=== PATIENT | female | born 1950 | race Caucasian/White ===

== ENCOUNTER 2018-12-30 15:29 | Inpatient (IN) | payer MEDICARE, BC ==
[~2018-12-30] VITALS: Ht 152.4 cm; Wt 37.1 kg
[2018-12-30 20:00] VITALS: BP 143/73
[2018-12-30] MEDS ORDERED: ASPIRIN81 MG PO (22:34)
[2018-12-30] MEDS ORDERED: MEGACE40 MG PO (22:37)
[2018-12-30] MEDS ORDERED: MELATONIN5 M3 PO (22:38)
[2018-12-30] MEDS ORDERED: ZYPREXA2.5 MG PO (22:39)
[2018-12-30] MEDS ORDERED: DEPAKENE250 MG PO (22:40)
[2018-12-30] MEDS ORDERED: THERAGRAN M [BK1 TAB PO (22:40)
--- NOTE | 2018-12-30 22:46 | NUR ---
PT ARRIVED TO UNIT VIA AMBULANCE FROM [facility] IN [place]. DAUGHTER WHO IS POA IS HERE TO SIGN CONSENTS. PT IS HERE FOR REFUSING FOOD, HALLUCINATIONS AND INCREASED CONFUSION. SHE IS ALERT AND ORIENTED TO SELF ONLY. HER SPEECH IS GARBLED AND TANGETIAL. SHE IS A TWO PERSON ASSIST. SHE CANNOT AMULATE BY HERSELF. SHE HAS SPENT THE LAST FEW DAYS IN A BRIANDA CHAIR AT [facility]. DAUGHTER HAS HER GLASSES AT HOME. PT WAS A TWO PACK A DAY SMOKER UNTIL A MONTH AGO. PT HAS TIMES OF INCONTINENCE.
[2018-12-30 23:03] VITALS: BP 142/73; BMI 16.2
[2018-12-30 23:12] LABS: BASOPHILS 0.4 % (0-2); EOSINOPHILS 3.5 % (0-7); HEMATOCRIT 36.3 % (36.0-48.0); HEMOGLOBIN 12.6 g/dL (12-16); IMMATURE GRANULOCYTES 0.4 % (0-5); LYMPHOCYTES 22.6 % (15-50); MCHC 34.7 g/dL (31.0-37.0); MCV 86.4 fL (80.0-100.0); MEAN PLATELET VOLUME 9.8 fL (7.4-10.4); MONOCYTES 11.5 % (2-11); NEUTROPHILS 61.6 % (40-80); PLATELET COUNT 261 10x3/uL (130-400); RDW 13.9 % (11.5-14.5); WBC 8.2 10x3/uL (4.8-10.8)
[2018-12-30 23:52] LABS: ALBUMIN 3.1 g/dL (3.4-5.0); ALKALINE PHOSPHATASE 66 U/L (46-116); ALT (SGPT) 32 U/L (10-68); BILIRUBIN - TOTAL 0.61 mg/dL (0.2-1.3); CALC OSMOLALITY 280 mosm/kg (275-300); CALCIUM 9.1 mg/dL (8.5-10.1); CARBON DIOXIDE 23.9 mmol/L (21.0-32.0); CHLORIDE - SERUM 106 mmol/L (98-107); CHOL - HDL RATIO 3.5 ratio (2.3-4.1); CHOLESTEROL, TOTAL 150 mg/dL (0-200); CREATININE - SERUM 0.5 mg/dL (0.6-1.3); GLUCOSE 76 mg/dL (74-106); HDL CHOLESTEROL 43 mg/dL (32-96); LDL CHOLESTEROL 91 mg/dL (0-100); LDL-HDL RATIO 2.1 ratio (1.5-3.5); POTASSIUM - SERUM 3.3 mmol/L (3.5-5.1); PROTEIN - SERUM 6.9 g/dL (6.4-8.2); SODIUM 142 mmol/L (136-145); THYROID STIMULATING HORMONE 2.09 uIU/mL (0.36-3.74); TRIGLYCERIDE 82 mg/dL (30-200); UREA NITROGEN 10 mg/dL (7-18); VALPROIC ACID (DEPAKOTE) 15.6 ug/mL (50.0-100.0); eGFR NON AFRICAN AMERICAN > 90 mL/min (90-120)
--- NOTE | 2018-12-31 00:30 | NUR ---
PATIENT UNABLE TO ANSWER QUESTIONS FOR SUICIDE SCREENING DUE TO COGNITIVE IMPAIRMENT.
[2018-12-31 08:00] VITALS: BP 106/72
[2018-12-31 10:28] VITALS: Ht 152.4 cm; Wt 37.1 kg
--- NOTE | 2018-12-31 16:56 | NUR ---
RECEIVED PT THIS MORNING AT B'FAST TIME. PT WAS ALERT, QUITE CONFUSED, MUMBLING TO SELF, DIFFICULT TO UNDERSTAND. APPETITE POOR. BUSY WITH HANDS. NO MEDS ORDERED FOR A.M. MED PASS. PT IS PLEASANT, NO AGGRESSION, UNABLE TO MAKE NEEDS KNOWN. CONT POC DIRECTED.
--- NOTE | 2018-12-31 20:45 | NUR ---
REC'D SITTING UP IN BED APPEARING TO GET OUT OF BED UNASSISTED. CONFUSED AND DOES NOT FOLLOW VERBAL INST. HAD PULLED GOWN OFF. MUMBLES. DOES NOT FOLLOW TOPIC OF CONVERSATION. ADMINISTER MEDS PER ORDERS Q SHIFT AND MONITOR COMPLIANCE. REORIENT NEEDED. MED COMPLIANT. POOR REORIENTATION. DOES NOLEN APPEAR TO BE ABLE TO COMPREHEND OR RETAIN INFORMATION. CONTINUE POC AND PROVIDE SAFE ENVIRONMENT.
[2019-01-01 00:24] VITALS: BP 125/50
[2019-01-01 08:19] VITALS: BP 96/65
--- NOTE | 2019-01-01 10:00 | NUR ---
PATIENT IS AWAKE, BUT VERY CONFUSED. UNABLE TO UNDERSTAND VERBAL INSTRUCTIONS, MUMBLES AND MAKES NO SENSE. SHE IS CONSTANTLY VERBALIZING WORDS OF NON-SENSICAL. SHE REFUSES TO EAT, EVEN WITH STAFF FEEDING HER. COMPLIANT WITH TAKING MEDS CRUSHED IN APPLESAUCE. FALL PRECAUTIONS IN PLACE. WILL CONTINUE PLAN OF CARE AND MONITOR FOR SAfety.
[2019-01-01 15:01] LABS: APPEARANCE CLEAR (CLEAR); BACTERIA MODERATE /hpf (NONE SEEN); BILIRUBIN NEGATIVE (NEGATIVE); COLOR YELLOW (YELLOW); EPITHELIAL CELLS 0-5 /hpf (0-5); GLUCOSE NEGATIVE (NEGATIVE); KETONE MODERATE mg/dL (NEGATIVE); NITRITE POSITIVE (NEGATIVE); PROTEIN NEGATIVE (NEGATIVE); RED CELLS - URINE 0-5 /hpf (0-5); SPECIFIC GRAVITY 1.025 (1.005-1.020); UROBILINOGEN NORMAL (NORMAL)
--- NOTE | 2019-01-01 15:20 | PSY ---
PATIENT NAME:ARJUN RUFF MEDICAL RECORD: [id number] : 46 LOCATION:GAETANO Henry1120 ADMISSION DATE: 12/30/18 ACCOUNT: [id number] PSYCHIATRIC EVALUATION DATE OF EVALUATION: 12/31/18 IDENTIFYING DATA: The patient is 68 years old and she is admitted to the hospital on a voluntary basis secondary to confusion and hallucinations. HISTORY OF PRESENT ILLNESS: The patient apparently was that the Emergency Room at [facility] in [place]. I think the patient's daughter either lives in [place] or [place] and so they wanted her transferred here. The patient has a diagnosis of Lewy body dementia. She is oriented only to person. She is not able to give me any useful information. She apparently has been confused, not eating and actively hallucinating and these were the reasons that brought her to us. PAST MEDICAL HISTORY: Unknown. The patient cannot provide history. There are no collateral sources of information or records available at this time and the medication she is taking do not indicate any underlying chronic pathological event. I am not sure where the list of medicines came from. They were probably provided by a family member last night when she was admitted. PAST PSYCHIATRIC HISTORY: Significant for diagnosis of Lewy body dementia, although I do not know who made that diagnosis or how long ago. FAMILY HISTORY: Unknown. ALLERGIES: No known drug allergies. CURRENT MEDICATIONS: Include aspirin, melatonin, Megace, Depakote, Zyprexa. SOCIAL HISTORY: The patient's face sheet lists her as and having a daughter. The patient is not able to give me any information about her level of longitudinal functioning. MENTAL STATUS EXAMINATION: The patient is awake, alert and very disorganized. She is oriented only to person. Speech is rambling, garbled, and disorganized. Memory, concentration, and abstraction abilities could not be tested because of her current state, but they may be inferred to be seriously and significantly impaired. She does not answer questions about wanting to hurt herself or others as well as psychotic symptoms in any meaningful way. Given her level of disorganization, she is not capable of hurting herself or others at this point. ASSETS: Supportive family members. LIABILITIES: Limited insight. DIAGNOSTIC IMPRESSION: AXIS I: Lewy body dementia. AXIS II: None. AXIS III: Unknown. AXIS IV: Moderate. AXIS V: Global assessment of functioning is 15. PLAN: At this time, the patient clearly has a very advanced dementia and previous diagnosis as indicated it is a Lewy body dementia. I will treat her with both mood stabilizing, antipsychotic, and memory enhancing medications in an effort to bring her symptoms under control. Her long-term prognosis is guarded. TRANSINT:[id number] Voice Confirmation ID: [id number] DOCUMENT ID: [id number] BIBIANA OCAMPO MD at 1520 CC: [id number] DICTATION DATE: 12/31/18 1210 TEXTILE ENGRAVER: 12/31/18 1223 ADM IN [place] [id number] [place] [id number]
--- NOTE | 2019-01-01 19:49 | NUR ---
RECEIVED IN DAYROOM. SITTING IN A RECLINING CHAIR WITH PEERS AT HER SIDE. SOCIALIZING AT TIMES. CONFUSED. CALM AND COOPERATIVE WITH CARE AND ASSESSMENT. NO SIGNS OF AGGRESSION. REDIRECT AND REORIENT NEEDED. CONTINUES TO SIT CALMLY. CONTINUE PLAN OF CARE
[2019-01-01 20:21] VITALS: BP 110/50
[2019-01-02 07:13] LABS: RAPID PLASMA REAGIN Non Reactive (Non Reactive)
--- NOTE | 2019-01-02 08:26 | NUR ---
PT AM MEDS ADMINISTERED CRUSHED IN APPLESAUCE. PT SITTING AT TABLE WAITING FOR BREAKFAST AT THIS TIME. WCTM.
[2019-01-02 08:34] VITALS: BP 135/72
--- NOTE | 2019-01-02 15:25 | PN ---
PATIENT:ARJUN RUFF MEDICAL RECORD: [id number] LOCATION:GAETANO GarciaEllisAriana ADMISSION DATE: 12/30/18 PROGRESS NOTE DATE OF SERVICE: 01/01/2019 SUBJECTIVE: The patient's case was discussed with staff. She has no new complaint. OBJECTIVE: The patient denies intent to harm herself or others. She is very disorganized and answers most questions in a rambling way. She is not eating well. She only weighs 88 pounds and is 5 feet 2 inches tall. ASSESSMENT: Lewy body dementia. PLAN: Current medicines have been reviewed. The patient will be given Megace to assist with appetite stimulation. Her long-term prognosis is guarded. TRANSINT:[id number] Voice Confirmation ID: [id number] DOCUMENT ID: [id number] BIBIANA OCAMPO MD at 1525 CC: [id number] DICTATION DATE: 01/01/19 1525 JEWELRY DRILL OPERATOR: 01/01/19 1629 ADM IN [place] [id number] [place] [address]
[2019-01-02 20:00] VITALS: BP 85/65
--- NOTE | 2019-01-03 00:47 | NUR ---
B) Patient is alert and oriented to self, very confused and restless, I) Patient refused all HS medications, monitored for safety, monitored for needs, R) Medication noncompliant, resting quietly in her bed now, P) Continue plan of care.
--- NOTE | 2019-01-03 10:07 | NUR ---
REC'D PT SITTING IN CHAIR IN DAY AREA. RESP EVEN AND NONLABORED. NO ACUTE DISTRESS NOTED. PT ONLY SLEPT 2.5 HOURS. PT IS ALERT AND ORIENTED TO SELF ONLY. PT IS INCONTIENT AND REQUIRES 2X ASSISTANCE. CHAIR ALARM IN PLACE AND ACTIVE. PT DID NOT EAT MUCH OF BREAKFAST 15% OF BREAKFAST. WILL ENCOURAGE FLUIDS. MECH SOFT WITH THIN LIQUIDS. WILL CONT PLAN OF CARE.
[2019-01-03 10:36] VITALS: BP 99/54
--- NOTE | 2019-01-03 12:22 | NUR ---
TEAM TREATMENT REVIEW: DIET: Mechanical soft; ensure with meals PO INTAKE: 20% for 9 meals WT: Dec 2nd- 88.6 lbs BM: x 1 on 01/01 MEDS: Vit B12, Megace LABS: Vit D-20.4(L), K=3.3(L), Cr-0.5(L), Vit B 12-1007(H) GOALS: Po intake > 75% BM q 3 days Weight gain of 0.5 to 1.0 lbs per week until BMI >/= 19 Maintain skin integrity Will continue to monitor closely Clinical Dietitian following
--- NOTE | 2019-01-03 15:07 | PN ---
PATIENT:ARJUN RUFF MEDICAL RECORD: [id number] LOCATION:GAETANO Puckett ADMISSION DATE: 12/30/18 PROGRESS NOTE DATE OF SERVICE: 01/02/2019 SUBJECTIVE: The patient's case was discussed with staff. She has no new complaint. OBJECTIVE: The patient is very restless and agitated. She is quite disorganized. Careful history was taken from her daughter who is consistently saying that this is a very rapid decline over the past 8 weeks. She has been evaluated at [facility], they have diagnosed with Lewy body dementia, but the rapid progression would indicate something different to me. ASSESSMENT: Lewy body dementia. PLAN: The patient is going to be treated with medications to stimulate her appetite as well as to calm her and make her more manageable and comfortable. Given the history of this longitudinal decline, her prognosis is exceedingly poor and I would strongly suspect Bebeto- Creutzfeldt and/or temporal or frontal lobe dementia, perhaps Pick's disease is being more accurate diagnosis but that is somewhat of less important since the outcome is not going to be different. I am going to refer her to hospice for evaluation. TRANSINT:[id number] Voice Confirmation ID: [id number] DOCUMENT ID: [id number] BIBIANA OCAMPO MD at 1507 CC: [id number] DICTATION DATE: 01/02/19 1603 SOLAR SALES SPECIALIST: 01/02/[address] [facility] [address] [place] [address]
--- NOTE | 2019-01-03 19:25 | NUR ---
REC'D SITTING WITH EYES CLOSED. DOES NOT INTERACT WITH STAFF BUT DOES MAKE MUMBLING NOISES AND OCCASIONALLY WILL SAY A WORD. PICKS AT THE COVER AND IN MID AIR. DOES NOT FOLLOW TOPIC OF CONVERSATION. POOR ORAL INTAKE. ADMINISTER MEDS PER ORDERS Q SHIFT AND MONITOR COMPLIANCE. INVOLVE IN REALITY BASED CONVERSATION. MED COMPLIANT. PATIENT UNABLE TO SEPARATE REALITY FROM FANTASY AND ONLY MUMBLES WITH OCCASIONAL AUDIBLE WORD. POOR EYE CONTACT. REFUSED DINNER AND ATE 10% AND 25% OF BREAKFAST AND LUNCH. CONTINUE POC AND PROVIDE SAFE ENVIRONMENT.
[2019-01-03 20:14] VITALS: BP 121/72
--- NOTE | 2019-01-04 01:33 | NUR ---
B.) PT IS ORIENTED TO SELF. SHE KEEPS HER EYES CLOSED THE MAJORITY OF THE TIME. SHE OFTEM MUMBLES TO HERSELF BUT THE SPEECH IS GARBLED.SHE IS RESPONSIVE WHEN SPOKEN TO. I.) PROVIDED PM MEDICATIONS. R.) COMPLIANT WITH MEDICATIONS. P.) CONTINUE PLAN OF CARE
--- NOTE | 2019-01-04 08:23 | NUR ---
PATIENT IS SITTING IN CHAIR AWAITING BREAKFAST. PT IS MAKING A GROANING NOISE. WILL NOT ANSWER WHEN ASKED IF SHE IS HURTING OR NOT. PT IS ALERT AND ORIENTED TO SELF. PT IS CONSTANTLY MOVING AND UNABLE TO BE STILL. CHAIR ALARM IN PLACE AND ACTIVE. WILL CONT PLAN OF CARE.
[2019-01-04 08:43] VITALS: BP 122/83
[2019-01-04 09:15] VITALS: BP 99/54
--- NOTE | 2019-01-04 16:02 | PN ---
PATIENT:ARJUN RUFF MEDICAL RECORD: [id number] LOCATION:GAETANO Puckett ADMISSION DATE: 12/30/18 PROGRESS NOTE DATE OF SERVICE: 01/03/2019 SUBJECTIVE: The patient's case was discussed with staff. She has no new complaint. OBJECTIVE: The patient is in good behavioral control. She has limited insight about her condition. She does have a therapeutic valproic acid level of 62. She is severely impaired cognitively and continues to not eat adequately. The description given by her family is one of a very rapid decline. Given the steepness of her decline, her prognosis is unfortunately extremely poor. ASSESSMENT: Dementia. PLAN: Efforts will be made to relieve the patient's agitation, make her more comfortable and more manageable. TRANSINT:[id number] Voice Confirmation ID: [id number] DOCUMENT ID: [id number] BIBIANA OCAMPO MD at 1602 CC: [id number] DICTATION DATE: 01/03/19 1524 HEAVY CLEANER: 01/03/19 2258 ADM IN [place] [id number] [place] [address]
--- NOTE | 2019-01-04 19:44 | NUR ---
PT. IS FLAT, DOES NOT COMMUNICATE WELL, DOES NOT MAKE NEEDS KNOWN, DEPENDENENT ON OTHERS FOR ADL'S, COMPLIANT WITH MEDS. WILL FOLLOW POC
[2019-01-04 20:17] VITALS: BP 125/77
[2019-01-05 07:30] VITALS: BP 116/70
--- NOTE | 2019-01-05 12:44 | PN ---
PATIENT:ARJUN RUFF MEDICAL RECORD: [id number] LOCATION:GAETANO Puckett ADMISSION DATE: 12/30/18 PROGRESS NOTE DATE OF SERVICE: 01/04/2019 SUBJECTIVE: The patient's case was discussed with staff. She has no new complaint. OBJECTIVE: The patient is in good behavioral control with limited insight about her condition. She tolerates her medicines well. ASSESSMENT: Lewy body dementia. PLAN: The patient is not eating adequately. She is 88 pounds and 5 feet 2 inches tall. Staff is going through a great deal of effort trying to individually feed her and get her to take fluid literally every 15-20 minutes with almost no result. Her prognosis is exceedingly poor. I anticipate that she needs to be referred to hospice. TRANSINT:[id number] Voice Confirmation ID: [id number] DOCUMENT ID: [id number] BIBIANA OCAMPO MD at 1244 CC: [id number] DICTATION DATE: 01/04/19 1604 CELL TESTER: 01/04/19 1910 ADM IN [facility] [address] [place] [id number]
--- NOTE | 2019-01-05 14:20 | NUR ---
PATIENT IS FLAT. DOES NOT MAKE NEEDS KNOWN. PT IS MAX ASSIST WITH ADL'S. ATTEMPT TO PUSH FLUIDS TO KEEP HYDRATED. PT REFUSES TO EAT MEALS AND DRINKS VERY LITTLE. ENCOURAGEMENT GIVEN. CHAIR ALARM IN PLACE AND ACTIVE.
--- NOTE | 2019-01-05 18:34 | NUR ---
SPOKE WITH PATIENT FAMILY THIS AFTERNOOON ABOUT STARTING HER ON AN ANTIBIOTIC DUE TO HER MICRO LAB COMING BACK. DAUGHTER GOT VERY EMOTIONAL WITH THE IDEA OF ATTEMPTING TO PUT HER MOTHER ON AN ANTIBIOTIC OR ATTEMPTING TO GET HER TO TAKE A ANTIBIOTIC. SHE DECIDED TO HOLD OFF ON STARTING ANTIBIOTIC FOR NOW AND WAS TALKING ABOUT HOSPICE.
--- NOTE | 2019-01-05 19:20 | NUR ---
PATIENT SITTING IN THE DAYROOM WITH EYES CLOSED. PATIENT NOT EATING OR DRINKING. DID NOT WAKE UP AND VISIT WITH DAUGHTER TODAY. ADMINISTER MEDS PER ORDERS Q SHIFT AND MONITOR COMPLIANCE. ENCOURAGE PATIENT TO CONSUME 30-50% OF MEALS. NON COMPLIANT WITH HS MEDS. SITTING UP IN CHAIR APPEARS TO BE SLEEPING. REFUSED BREAKFAST AND LUNCH AND WAS ASLEEP DURING DINNER. CONTINUE POC AND PROVIDE SAFE ENVIROMENT.
[2019-01-05 20:00] VITALS: BP 116/75
--- NOTE | 2019-01-05 22:14 | NUR ---
SPOKE WITH DAUGHTER VIA TELEPHONE. RELATES SHE IS THINKING ABOUT WHETHER TO START HER MOM ON ANTIBIOTIC OR NOT. EXPLAINED THE DIFFERENT ROUTES FOR ADMINISTRATION. DAUGHTER VERY TORN ABOUT WHAT IS THE BEST DECISION TO MAKE FOR HER MOTHER'S CARE. THANKED NURSE FOR TALKING WITH HER AND THANKED THE UNIT FOR CARING FOR HER MOTHER,
--- NOTE | 2019-01-05 23:33 | NUR ---
PT FSBS-104. WILL CONTINUE TO MONITOR.
[2019-01-06 08:09] VITALS: BP 128/77
--- NOTE | 2019-01-06 11:29 | PN ---
PATIENT:ARJUN RUFF MEDICAL RECORD: [id number] LOCATION:GAETANO Henry112 ADMISSION DATE: 12/30/18 PROGRESS NOTE DATE OF SERVICE: 01/05/2019 SUBJECTIVE: The patient's case was discussed with staff. She has no new complaint. OBJECTIVE: The patient is in good behavioral control with limited insight about her condition. She tolerates her medicines well. ASSESSMENT: No change in diagnoses. PLAN: Brief supportive and educational interventions were made. Long-term prognosis is guarded. TRANSINT:[id number] Voice Confirmation ID: [id number] DOCUMENT ID: [id number] BIBIANA OCAMPO MD at 1129 CC: [id number] DICTATION DATE: 01/05/19 1309 DATA REDUCTION TECHNICIAN: 01/05/19 1348 ADM IN [place] [id number]
--- NOTE | 2019-01-06 14:04 | NUR ---
B) The patient is not alert today, she remains sleepy. She is did drink a little milk and took her medication well. Spoke to her daughter about her being on an antibiotic. She wanted to know if the has chosen the type of antibiotic before she gives an ok to give it or not. The patient is not responsive today. I) Provide prescribed meds. R) The patient is compliant with meds today. P) Continue POC.
[2019-01-06 20:00] VITALS: BP 108/69
--- NOTE | 2019-01-06 20:26 | NUR ---
RECEIVED IN DAYROOM. SITTING IN A RECLINING CHAIR WITH PEERS AT HER SIDE. NO SIGNS OF HALLUCINATIONS. NO SIGNS OF AGITATION. CALM AND COOPERATIVE WITH CARE AND ASSESSMENT. REDIRECT AND REORIENT NEEDED. CONTINUES TO SIT QUIETLY. CONTINUE PLAN OF CARE
[2019-01-07 08:00] VITALS: BP 137/50
--- NOTE | 2019-01-07 09:26 | NUR ---
RECEIVED PATIENT IN DINING ROOM FOR B'FAST, REFUSED MEAL, REFUSED MEDS, VERY CONFUSED, UNABLE TO MAKE NEEDS KNOWN.
--- NOTE | 2019-01-07 15:00 | PN ---
PATIENT:ARJUN RUFF MEDICAL RECORD: [id number] LOCATION:GAETANO HenryAriana ADMISSION DATE: 12/30/18 PROGRESS NOTE DATE OF SERVICE: 01/06/2019 SUBJECTIVE: The patient's case was discussed with staff. She has no new complaint. OBJECTIVE: The patient is not compliant with medications. She has limited insight about her situation. ASSESSMENT: No change in diagnoses. PLAN: Current medicines have been reviewed. I am going to hold some of her medication secondary to some sedation. Her long-term prognosis is guarded. TRANSINT:[id number] Voice Confirmation ID: [id number] DOCUMENT ID: [id number] BIBIANA OCAMPO MD at 1500 CC: [id number] DICTATION DATE: 01/06/19 1131 HONEYCOMB DECAPPER: 01/06/19 1231 ADM IN [place] [id number] [place] [address]
[2019-01-07] MEDS ORDERED: MELATONIN 3 MG1 TAB PO (16:06)
[2019-01-07] MEDS ORDERED: DEPAKOTE SPRINKLE PO (16:06)
[2019-01-07] MEDS ORDERED: VITAMIN B-121000 MCG PO (16:06)
[2019-01-07 18:08] LABS: AEROBE ID Final report (())
[2019-01-07 20:20] VITALS: BP 120/50
--- NOTE | 2019-01-07 20:59 | NUR ---
RECEIVED IN DAYROOM. SITTING AT THE TABLE IN A RECLINER WITH HER EYES CLOSED. CALM AND COOPERATIVE WITH CARE AND ASSESSMENT. NO SIGNS OF HALLUCINATIONS. NO SIGNS OF AGGRESSION. REDIRECT AND REORIENT NEEDED. CONTINUES TO SIT QUIETLY IN A RECLINER. CONTINUE PLAN OF CARE
[2019-01-08 08:00] VITALS: BP 135/58
--- NOTE | 2019-01-08 09:24 | PN ---
PATIENT:ARJUN RUFF MEDICAL RECORD: [id number] LOCATION:GAETANO Puckett ADMISSION DATE: 12/30/18 PROGRESS NOTE DATE OF SERVICE: 01/07/2019 SUBJECTIVE: The patient's case was discussed with staff. She has no new complaint. OBJECTIVE: The patient is significantly and seriously impaired cognitively. ASSESSMENT: Lewy body dementia. PLAN: The patient is not eating. She is not answering questions. Today, she grunts yes or no answers to a few questions, but then turns her head away from me and will not respond. I think her prognosis is exceedingly poor. Hospice has reviewed her case and is willing to accept her and I do plan on transitioning her out of the hospital tomorrow. I think there is little that can be done for her in this setting. TRANSINT:[id number] Voice Confirmation ID: [id number] DOCUMENT ID: [id number] BIBIANA OCAMPO MD at 0924 CC: [id number] DICTATION DATE: 01/07/19 1557 PEST CONTROL CHEMICAL TECHNICIAN: 01/07/19 1935 ADM IN [facility] [address] [place] [id number]
--- NOTE | 2019-01-08 11:29 | NUR ---
RECEIVED PT. IN DINING ROOM FOR B'FAST, AWAKE, RESTLESS, ORAL CARE PERFORMED, REFUSED MEDS, EXTREMELY CONFUSED, NO BEHAVIORAL ISSUES NOTED. DISORIENTED TO PERSON, PLACE, TIME, SITUATION. TOTAL CARE.
--- NOTE | 2019-01-08 14:20 | NUR ---
Nutrition Follow-up: Chart reviewed. Noted STAMPS OR COINS SALESPERSON states that pt is not safe for PO intake and MD notes pt refusing food. Recommend begin enteral nutrition support as soon as medically feasible, ideally within 24hrs. If EN needed recommend start continuous TF: Osmolite 1.0 @ 20mL/hr, check residual per protocol every 6hrs, if residual <150mL, increase by 10mL/hr every 6hrs until reaching goal rate of 50mL/hr. Recommend goal H2O flush @ 10mL/hr. RD Following
--- NOTE | 2019-01-08 20:24 | NUR ---
RECEIVED IN DAYROO. SITTING IN A RECLINING CHAIR AT [facility] TABLE. MOVING AROUND MAKING NOISES. CALM AND COOPERATIVE WITH CARE AND ASSESSMENT. MONITOR FOR SAFETY. REPOSITION FOR COMFORT. CONTINUES TO SIT QUIETLY. CONTINUE PLAN OF CARE
[2019-01-08 21:49] VITALS: BP 115/50
--- NOTE | 2019-01-09 00:02 | NUR ---
SPOKE WITH PATIENT'S DAUGHTER. UPDATE GIVEN. DAUGHTER RELATED SHE GUESSED HER MOTHER WOULD BE GETTING MOVED TODAY AND THANKED THE UNIT FOR CARING FOR HER MOTHER.
[2019-01-09 07:13] LABS: CALC OSMOLALITY 305 mosm/kg (275-300); CALCIUM 9.5 mg/dL (8.5-10.1); CARBON DIOXIDE 26.6 mmol/L (21.0-32.0); CHLORIDE - SERUM 113 mmol/L (98-107); CREATININE - SERUM 0.6 mg/dL (0.6-1.3); GLUCOSE 84 mg/dL (74-106); POTASSIUM - SERUM 3.5 mmol/L (3.5-5.1); SODIUM 151 mmol/L (136-145); UREA NITROGEN 31 mg/dL (7-18); eGFR NON AFRICAN AMERICAN > 90 mL/min (90-120)
--- NOTE | 2019-01-09 09:32 | NUR ---
STAFF ATTEMPTED MULTIPLE TIMES THIS MORNING TO GET PT TO EAT BUT PT ONLY ATE A FEW BITES AND DRANK A FEW SIPS OF ENSURE.
[2019-01-09 10:00] VITALS: BP 127/59
--- NOTE | 2019-01-09 11:07 | NUR ---
RECEIVED PATIENT IN DAYROOM FOR B'FAST, PT. REFUSED MORNING MEDS. NO BEHAVIORAL ISSUES. APPETITE VERY POOR. RESTLESS, MOVING ARMS AND LEGS CONSTANTLY. UNAWARE OF SURROUNDINGS.
--- NOTE | 2019-01-09 18:58 | PN ---
PATIENT:ARJUN RUFF MEDICAL RECORD: [id number] LOCATION:DONITAMihir HenryAriana ADMISSION DATE: 12/30/18 PROGRESS NOTE DATE OF SERVICE: 01/08/2019 SUBJECTIVE: The patient's case was discussed with staff. She has no new complaint. OBJECTIVE: The patient is only oriented to person. She ate nothing yesterday. She did sleep well last night. ASSESSMENT: No change in diagnoses. PLAN: The patient's condition is grave. She is end-stage with her dementia and is scheduled to be discharged from here today with follow up with hospice at the long term. TRANSINT:[id number] Voice Confirmation ID: [id number] DOCUMENT ID: [id number] BIBIANA OCAMPO MD at 1858 CC: [id number] DICTATION DATE: 01/08/19 1037 SAVINGS TELLER: 01/08/19 1303 ADM IN [facility] [address] [place] [address]
[2019-01-09 21:10] VITALS: BP 120/60
--- NOTE | 2019-01-09 21:49 | NUR ---
PATIENT IS TALKING, SHE HOLDS HER ARMS OUT AT TIMES, SHE IS NOT SPEAKING, SHE CAN NOT VERBALIZE NEEDS OR WANTS, TOTALLY DEPENDENT ON STAFF FOR CARE. PATIENT TOOK MEDS THIS EVENING (CRUSHED WITH PUDDING). WILL FOLLOW POC
--- NOTE | 2019-01-09 23:20 | NUR ---
SPOKE WITH PATIENT'S DAUGHTER. UPDATE GIVEN.
--- NOTE | 2019-01-10 08:03 | NUR ---
PATIENT SITTING IN CHAIR. AWAITING BREAKFAST. RESP EVEN AND NONLABORED. NO ACUTE DISTRESS NOTED. PT IS ORIENTED TO SELF ONLY WITH CONFUSION NOTED. PT IS NONVERBAL. TOTAL ASSIST. PATIENT IS VERY RESTLESS AND UNABLE TO CONSOLE WHEN MAKING NOISES. CHAIR ALARM IN PLACE AND ACTIVE. WILL CONT PLAN OF CARE.
[2019-01-10 09:41] VITALS: BP 102/64
--- NOTE | 2019-01-10 10:45 | NUR ---
NUTRITION F/U PUREED DIET WITH ENSURE. STAFF IS FEEDING WITH SYRINGE. APPEARS TO BE AWAITING PLACEMENT/HOSPICE. RD FOLLOWING
--- NOTE | 2019-01-10 13:52 | PN ---
PATIENT:ARJUN RUFF MEDICAL RECORD: [id number] LOCATION:GAETANO Henry112 ADMISSION DATE: 12/30/18 PROGRESS NOTE DATE OF SERVICE: 01/09/2019 SUBJECTIVE: The patient's case was discussed with staff. She has no new complaint. OBJECTIVE: The patient is not eating well. She is sleeping well. She has very limited insight about her situation. At this time, arrangements are being sought for her discharge. She is in need of comfort care measures. TRANSINT:[id number] Voice Confirmation ID: [id number] DOCUMENT ID: [id number] BIBIANA OCAMPO MD at 1352 CC: [id number] DICTATION DATE: 01/09/192004 TRANSPLANT CASE MANAGER: 01/10/19 0029 ADM IN [place] [id number] [place] [address]
--- NOTE | 2019-01-10 19:15 | NUR ---
REC'D SITTING IN THE DAYROOM. EYES CLOSED. MOVING ARMS AND LEGS. NOT ACKNOWLEDGING STAFF SPEAKING TO HER. MAKES MOANING NOISES. NO WORDS. ADMINISITER MEDS AND MONITOR COMPLIANCE. ENCOURAGE PATIENT TO VERBALIZE WHEN APPROACHED. MED COMPLIANT. NON VERBAL EVEN WHEN NURSE TALKING DIRECTLY TO HER. CONTINUE POC AND PROVIDE SAFE ENVIRONMENT.
[2019-01-10 20:05] VITALS: BP 112/67
--- NOTE | 2019-01-11 07:59 | NUR ---
B) The patient is lethargic today, she is not speaking she has poor insight into her situation, she is restless as she kicks and moves in the gerichair, it is padded with pillows, but she has bruises to her bony areas from banging on the gerichair. Applied a mepilex to her upper back as she has a skin shearing from rubbing and moving all about in the chair. I) Provide prescribed meds and offer fluids every hour and at meals. R) The patient is compliant with meds. P) Continue POC.
[2019-01-11 09:29] VITALS: BP 100/64
--- NOTE | 2019-01-11 15:52 | PN ---
PATIENT:ARJUN RUFF MEDICAL RECORD: [id number] LOCATION:GAETANO Puckett ADMISSION DATE: 12/30/18 PROGRESS NOTE DATE OF SERVICE: 01/10/2019 SUBJECTIVE: The patient's case was discussed with staff. She has no new complaint. OBJECTIVE: The patient is in good behavioral control. She has limited insight about her condition. ASSESSMENT: No change in diagnoses. PLAN: Brief supportive and educational interventions were made. Long-term prognosis is guarded. The patient has been accepted to hospice and once the correction gives her approval she will be transferred there for comfort care. TRANSINT:[id number] Voice Confirmation ID: [id number] DOCUMENT ID: [id number] BIBIANA OCAMPO MD at 1552 CC: [id number] DICTATION DATE: 01/10/19 1541 INTERLACER: 01/10/19 1559 ADM IN [place] [id number] [place] [id number]
[2019-01-11 20:58] VITALS: BP 138/73
--- NOTE | 2019-01-12 01:16 | NUR ---
B) Patient is alert and oriented to self, very confused, unable to ambulate or talk, will follow simple instructions, I) Administered scheduled medications as ordeered, monitored for safety R) Mediation compliant, quiet, no change in behaviors P) Continue plan of care
[2019-01-12 09:19] VITALS: BP 126/84
--- NOTE | 2019-01-12 10:57 | NUR ---
RECEIVED PT IN DINING ROOM FOR B'FAST, REFUSED MEAL, DISORIENTED, VERY CONFUSED, REFUSED MEDS. NO AGGRESSION NOTED.
--- NOTE | 2019-01-12 12:02 | PN ---
PATIENT:ARJUN RUFF MEDICAL RECORD: [id number] LOCATION:[facility] ADMISSION DATE: 12/30/18 PROGRESS NOTE DATE OF SERVICE: 01/11/2019 SUBJECTIVE: The patient's case was discussed with staff. She has no new complaint. OBJECTIVE: The patient is in good behavioral control, but severely impaired cognitively. She is not eating or sleeping well. ASSESSMENT: No change in diagnoses. PLAN: Current medicines have been reviewed and will be maintained. Long-term prognosis is guarded. Brief supportive and educational interventions were made. TRANSINT:[id number] Voice Confirmation ID: [id number] DOCUMENT ID: [id number] BIBIANA OCAMPO MD at 1202 CC: [id number] DICTATION DATE: 01/11/19 165 MANAGER DESKTOP: 01/11/192128 ADM IN [place] [id number] [place] [address]
[2019-01-12 20:00] VITALS: BP 128/86
--- NOTE | 2019-01-13 01:19 | NUR ---
B.) PT IS ORIENTED TO SELF ONLY. SHE KEEPS HER EYES CLOSED ALMOST AT ALL TIMES. SHE IS UNABLE TO SPEAK BUT IS ABLE TO FOLLOW SIMPLE INSTRUCTIONS. I.) PROVIDED PM MEDICATIONS R.) COMPLIANT WITH PM MEDICATIONS. P.) CONTINUE PLAN OF CARE
[2019-01-13 07:00] VITALS: BP 126/91
--- NOTE | 2019-01-13 11:47 | NUR ---
RECEIVED PATIENT IN DINING ROOM AT BREAKFAST, LETHARGIC, RESTLESS, FREQUENTLY SQUIRMS AROUND IN CHAIR AND ENDING UP SITTING SIDEWAYS IN RECLINER. MEDS ADMIN IN CHOCOLATE ICE CREAM. REFUSED B'FAST BUT DID EAT ALL OF THE CHOCOLATE ICE CREAM (118 ML). QUIET, COOPERATIVE WITH CARE, CONT POC DIRECTED.
--- NOTE | 2019-01-13 11:49 | NUR ---
OPEN AREA NOTED TO BACK, MEASURING APPROX 2.5 CM X 8 CM, NO DRAINAGE NOTED, CLEANED WITH NS, PATTED DRY WITH CLEAN GAUZE, AND COVERED WITH MEPILEX BORDER. GEOMAT CUSHION PLACED IN CHAIR FOR COMFORT AND PRESSURE RELIEF
--- NOTE | 2019-01-13 17:16 | NUR ---
DTR. WAS HERE DURING VISITATION TIME.
[2019-01-13 20:00] VITALS: BP 112/76
--- NOTE | 2019-01-13 20:48 | NUR ---
B.) PT IS ORIENTED TO SELF ONLY. SHE IS SITTING IN BRIANDA-CHAIR WITH FOAM PADDING TO PAD HER SHOULDER. SHE IS NON-VERBAL MAKING ONLY INAUDIBLE SOUNDS. I.) PROVIDED PM MEDICATIONS. R.) COMPLIANT WITH ALL MEDICATIONS. P.) CONTINUE PLAN OF CARE
[2019-01-14 07:00] VITALS: BP 134/103
--- NOTE | 2019-01-14 10:12 | NUR ---
RECEIVED PATIENT IN DINING ROOM FOR B'FAST, ALERT, CALM, CONFUSED. MEDS CRUSHED AND MIXED WITH CHOCOLATE ICE CREAM. PT ATE THE ENTIRE CONTENTS OF THE ICE CREAM CONTAINER. CONT POC DIRECTED.
--- NOTE | 2019-01-14 11:30 | NUR ---
FOAM EGG CRATE PAD IN PLACE TO BACK FOR COMFORT. PT FREQUENTLY CHANGES POSITION IN RECLINER.
--- NOTE | 2019-01-14 13:27 | NUR ---
[facility] CALLED AND TRANSPORT ARRANGED TO [facility] IN [place]. [facility] NOTIFIED.
--- NOTE | 2019-01-14 15:51 | PN ---
PATIENT:ARJUN RUFF MEDICAL RECORD: [id number] LOCATION:[facility] GarciaEllisAriana ADMISSION DATE: 12/30/18 PROGRESS NOTE DATE OF SERVICE: 01/12/2019 SUBJECTIVE: The patient's case was discussed with staff. She has no new complaint. OBJECTIVE: The patient denies intent to harm herself or others. She is oriented to person only. She ate a little better yesterday, but she is still not eating adequately. She is sleeping reasonably well. ASSESSMENT: Lewy body dementia. PLAN: Current medicines have been reviewed and will be maintained. Long-term prognosis is guarded. TRANSINT:[id number] Voice Confirmation ID: [id number] DOCUMENT ID: [id number] BIBIANA OCAMPO MD at 1551 CC: [id number] DICTATION DATE: 01/12/19 1244 MITER CUTTER: 01/12/19 1351 ADM IN [facility] [address] [id number]
--- NOTE | 2019-01-14 15:51 | PN ---
PATIENT:ARJUN RUFF MEDICAL RECORD: [id number] LOCATION:[facility] HenryAriana ADMISSION DATE: 12/30/18 PROGRESS NOTE DATE OF SERVICE: 01/13/2019 SUBJECTIVE: The patient's case was discussed with staff. She has no new complaint. OBJECTIVE: The patient is not eating well. She did sleep reasonably well. ASSESSMENT: No change in diagnoses. PLAN: Supportive and educational interventions were made. Long-term prognosis is guarded. TRANSINT:[id number] Voice Confirmation ID: [id number] DOCUMENT ID: [id number] BIBIANA OCAMPO MD at 1551 CC: [id number] DICTATION DATE: 01/13/19 0939 CHECKING CLERK: 01/13/19 1504 ADM IN [address] [id number] [place] [address]
--- NOTE | 2019-01-14 18:18 | NUR ---
REPORT CALLED TO RAFFAELE AT [facility]. ALL PAPERWORK FAXED AND COPY WILL BE SENT WITH PT AT DISCHARGE.
--- NOTE | 2019-01-14 19:25 | NUR ---
DC'D TO [facility] VIA EMS. STABLE AT TIME OF DC. PERSONAL BELONGINGS SENT WITH EMS STAFF.
--- NOTE | 2019-01-14 19:31 | NUR ---
DC'D TO [facility] EMS. PERSONAL BELONGINGS SENT WITH EMS STAFF. CONDITION STABLE AT TIME OF DC.
--- NOTE | 2019-01-15 12:36 | PN ---
PATIENT:ARJUN RUFF MEDICAL RECORD: [id number] LOCATION:[facility]HELLEYMihir Henry112 ADMISSION DATE: 12/30/18 PROGRESS NOTE DATE OF SERVICE: 01/14/2019 SUBJECTIVE: The patient's case was discussed with staff. She has no new complaint. OBJECTIVE: The patient denies intent to harm herself or others. She tolerates her medicines well. ASSESSMENT: Lewy body dementia. PLAN: The patient will be transitioned out of the hospital tomorrow. She will be going to the [facility] and she will have hospice following her there. TRANSINT:[id number] Voice Confirmation ID: [id number] DOCUMENT ID: [id number] BIBIANA OCAMPO MD at 1236 CC: [id number] DICTATION DATE: 01/14/19 164 SAUSAGE MAKER: 01/14/19 1833 DIS IN 01/14/19 [facility] [address] [place] [address]
--- NOTE | 2019-01-30 15:47 | DS ---
PATIENT:ARJUN RUFF :46 MEDICAL RECORD: [id number] DISCHARGE SUMMARY ADMISSION DATE: 12/30/18 DISCHARGE DATE: 01/14/19 IDENTIFYING DATA: The patient is 68 years old and she was admitted to the hospital on a voluntary basis because of confusion and hallucinations. The patient presented to the Emergency Room at the [facility] in [place]. The family wanted her transferred here. She has an established diagnosis of dementia and is only oriented to person. HOSPITAL COURSE: The patient was admitted to the hospital and fully evaluated from both a medical, psychological, and social standpoint. The patient clearly had an advanced dementia. It had been established as a Lewy body dementia. She was treated with various medications to calm her, but her prognosis was exceedingly poor. The dementia is advanced. She was not eating adequately and despite almost heroic efforts on the part of the nursing staff to try to get food and water into her it is still insufficient for long-term survival. DISCHARGE DIAGNOSES: AXIS I: Lewy body dementia. AXIS II: None. AXIS III: None. AXIS IV: Moderate. AXIS V: Global assessment of functioning is 20. PLAN: At the time of discharge, the patient was severely impaired cognitively. She was transferred to a hospice care setting for comfort care measures. Unfortunately, her prognosis is exceptionally poor. She does not have any symptoms that would represent a direct or eminent risk to herself or others. Followup is to be with her primary care physician and the staff at the hospice agency. TRANSINT:[id number] Voice Confirmation ID: [id number] DOCUMENT ID: [id number] BIBIANA OCAMPO MD at 1547 CC: [id number] DICTATION DATE: 01/17/19 1347 MANAGER SOCIAL WORK: 01/18/19 0145 DIS IN 01/14/19 [address] [id number] [place] [address]
== END 2019-01-14 19:25 | DRG 57 ==
LOC: D.PSYCH 15:29
PROVIDERS: Family Medicine; ADMIT Psychiatry & Neurology Psychiatry; ATTEND Psychiatry & Neurology Psychiatry
DX: G31.83 Neurocognitive disorder with Lewy bodies (principal); F02.81 Dementia in other diseases classified elsewhere, unspecified severity, with behavioral disturbance; E44.0 Moderate protein-calorie malnutrition; N39.0 Urinary tract infection, site not specified; G91.2 (Idiopathic) normal pressure hydrocephalus; G47.00 Insomnia, unspecified; R26.9 Unspecified abnormalities of gait and mobility; E87.6 Hypokalemia; E55.9 Vitamin D deficiency, unspecified; B95.8 Unspecified staphylococcus as the cause of diseases classified elsewhere; F80.9 Developmental disorder of speech and language, unspecified; E86.0 Dehydration